=== PATIENT | female | born 1970 | race American Indian/Alaskan Native ===

== ENCOUNTER 2020-05-03 13:53 | Inpatient (IN) | payer OTHER ==
--- NOTE | 2020-05-03 15:03 | Event Note ---
ED Screening Note ED Screening Note: 1 AM this morning n/v/d states she also feels SOB and CP no fever no cough no abd pain no urinary symptoms PMHx none no allergies to meds LNMP: last month This initial assessment/diagnostic orders/clinical plan/treatment(s) is/are subject to change based on patients health status, clinical progression and re- assessment by fellow clinical providers in the ED. Further treatment and workup at subsequent clinical providers discretion. Patient/guardian urged not to elope from the ED as their condition may be serious if not clinically assessed and managed. Initial orders include: CP protocol
[2020-05-03 15:57] LABS: Mean Corpuscular HGB Conc 29 % (30-34); Platelet Count 520 K/mm3 (140-440); Red Blood Count 4.74 M/mm3 (3.65-5.03)
[2020-05-03 16:02] LABS: Hematocrit 29.4 % (30.3-42.9); Hemoglobin 8.6 gm/dl (10.1-14.3); Mean Corpuscular Volume 62 fl (79-97); Red Cell Distribution Width 21.8 % (13.2-15.2)
[2020-05-03 16:05] LABS: Alanine Aminotransferase 9 units/L (7-56); Albumin 4.5 g/dL (3.9-5); Blood Urea Nitrogen 9 mg/dL (7-17); Calcium 9.5 mg/dL (8.4-10.2); Hemolysis Index 1
[2020-05-03 16:28] LABS: BUN/Creatinine Ratio 15
[2020-05-03 16:43] LABS: Chol/HDL Ratio 4.17 %; HDL Cholesterol 41 mg/dL (40-59); LDL Cholesterol,Direct 126 mg/dL (50-130)
--- NOTE | 2020-05-03 16:48 | XRay Report ---
CHEST 2 VIEWS INDICATION: Chest Pain. COMPARISON: None FINDINGS: SUPPORT DEVICES: None. HEART: Within normal limits. LUNGS/PLEURA: There is a 7 mm nodular density over the periphery of the right upper lobe. Otherwise n o acute air space or interstitial disease. No pneumothorax. ADDITIONAL FINDINGS: None. IMPRESSION: 1. Pulmonary findings as above. This could represent a calcified granuloma; however, correlate with a ny prior outside imaging or consider nonemergent CT chest follow-up for further evaluation. Signer Name: Gerard Guzman MD Signed: 05/03/2020 4:43 PM Workstation Name: [id number]
[2020-05-03] MEDS ORDERED: ASPIRIN 325 MG TAB PO ONE (17:02)
[2020-05-03 17:12] LABS: Bacteria,Urine 1+ /HPF (Negative); Bilirubin,Urine NEG (Negative); Blood,Urine NEG (Negative); Color,Urine Yellow (Yellow); Mucus,Urine 2+ /HPF; Urobilinogen,Urine < 2.0 mg/dL (<2.0)
--- NOTE | 2020-05-03 17:18 | Emergency Department Report ---
ED Chest Pain HPI - General Chief Complaint: Nausea/Vomiting/Diarrhea Stated Complaint: CHEST PAIN, VOMITING Time Seen by Provider: 05/03/20 15:01 Source: patient Mode of arrival: Ambulatory Limitations: No Limitations - History of Present Illness Initial Comments: 49-year-old female, no past medical history, presents to ED with vomiting and left-sided chest pain since 1 AM this morning. Patient states pain is like a tightness or discomfort. She reports some associated shortness of breath. Patient states she also has a couple of episodes of diarrhea with chills. Denies fever. Patient denies any tobacco use, family history of CAD. MD Complaint: chest pain -: This morning Onset: during rest Pain Location: left chest Pain Radiation: none Severity: moderate Severity scale (0 -10): 7 Quality: tightness, other ("Discomfort") Consistency: constant Improves With: nothing Worsens With: nothing re: nausea, vomting, dyspnea Other Symptoms: denies: cough, fever, leg swelling - Related Data Home Medications Medication Instructions Recorded Confirmed Last Taken No Known Home Medications [No 05/04/20 05/04/20 Unknown Reported Home Medications] Allergies Allergy/AdvReac Type Severity Reaction Status Date / Time No Known Allergies Allergy Verified 05/03/20 15:02 Heart Score - HEART Score History: Moderately suspicious EKG: Non-specific Age: 45-65 Risk factors: No known risk factors Troponin: > 3x normal limit HEART Score: 5 - Critical Actions Critical Actions: 4-6 pts:12-16.6% risk of adverse cardiac event. Should be admitted ED Review of Systems ROS: Stated complaint: CHEST PAIN, VOMITING Other details as noted in HPI Comment: All other systems reviewed and negative Constitutional: chills. denies: fever Respiratory: shortness of breath. denies: cough Cardiovascular: chest pain Gastrointestinal: nausea, vomiting, diarrhea ED Past Medical Hx - Past Medical History Previous Medical History?: No - Surgical History Past Surgical History?: Yes Additional Surgical History: Tubal ligation 1992, - Social History Smoking Status: Never Smoker Substance Use Type: None - Medications Home Medications: Home Medications Medication Instructions Recorded Confirmed Last Taken Type No Known Home Medications [No 05/04/20 05/04/20 Unknown History Reported Home Medications] ED Physical Exam - General Limitations: No Limitations General appearance: alert, in no apparent distress - Head Head exam: Present: atraumatic, normocephalic - Eye Eye exam: Present: normal appearance, EOMI - ENT ENT exam: Present: mucous membranes moist - Neck Neck exam: Present: normal inspection - Respiratory Respiratory exam: Present: normal lung sounds bilaterally. Absent: respiratory distress - Cardiovascular Cardiovascular Exam: Present: regular rate, normal rhythm - GI/Abdominal GI/Abdominal exam: Present: soft. Absent: distended, tenderness - Extremities Exam Extremities exam: Present: normal inspection. Absent: pedal edema, calf tenderness - Neurological Exam Neurological exam: Present: alert, oriented X3 - Psychiatric Psychiatric exam: Present: normal affect, normal mood - Skin Skin exam: Present: warm, dry, intact, normal color ED Course Vital Signs 05/03/20 05/03/20 05/03/20 14:13 15:19 16:46 Temperature 98.2 F Pulse Rate 74 85 Respiratory 14 13 20 Rate Blood Pressure 146/86 163/88 163/88 Blood Pressure [Left] O2 Sat by Pulse 100 75 L 100 Oximetry 05/03/20 05/03/20 05/03/20 16:58 17:00 18:01 Temperature Pulse Rate 86 70 95 H Respiratory 22 14 13 Rate Blood Pressure 126/71 122/56 Blood Pressure 122/56 [Left] O2 Sat by Pulse 100 100 100 Oximetry 05/03/20 05/03/20 05/03/20 19:00 20:00 20:21 Temperature Pulse Rate 93 H 93 H 82 Respiratory 23 12 28 H Rate Blood Pressure 128/73 144/66 144/66 Blood Pressure [Left] O2 Sat by Pulse 99 98 100 Oximetry 05/03/20 05/03/20 05/03/20 20:31 20:41 20:51 Temperature Pulse Rate 93 H 90 91 H Respiratory 10 L 18 9 L Rate Blood Pressure 144/66 144/66 144/66 Blood Pressure [Left] O2 Sat by Pulse 100 99 99 Oximetry 05/03/20 21:22 Temperature 100.1 F H Pulse Rate 81 Respiratory 20 Rate Blood Pressure 127/78 Blood Pressure [Left] O2 Sat by Pulse 100 Oximetry - Consultations Consultation #1: 05/03/20 18:[address] Ivey, mule packer. Agrees with heparin drip. Will see patient in consult. ED Medical Decision Making - Lab Data Result diagrams: 05/03/20 15:18 05/03/20 15:18 - EKG Data -: EKG Interpreted by Me EKG shows normal: sinus rhythm, axis, intervals, QRS complexes Rate: normal - EKG Data Interpretation: other (T wave inversions I, aVL) - Radiology Data Radiology results: report reviewed, image reviewed - Medical Decision Making 49-year-old female, no known past medical history, presents to ED with chest pain. Patient found to have elevated troponin of 0.4 function. EKG shows no acute ST elevations, however does show some T wave inversions in the lateral leads. Chest x-ray unremarkable. CTA was also obtained, it is negative for PE. Spoke with mule packer, arash with heparin drip. Will see patient in consult. Patient will be admitted to hospitalist, Dr. Dejesus, for further management. Critical Care Time: Yes Critical care time in (mins) excluding proc time.: 35 Critical care attestation.: If time is entered above; I have spent that time in minutes in the direct care of this critically ill patient, excluding procedure time. Critical Care Time: 35 min ED Disposition Clinical Impression: NSTEMI (non-ST elevated myocardial infarction) Disposition: -09 OP ADMIT IP TO THIS HOSP Is pt being admited?: Yes Condition: Stable Time of Disposition: 18:33
[2020-05-03 17:25] LABS: Basophils % (Manual) 0 % (0.0-1.8); Eosinophils % (Manual) 0 % (0.0-4.3); Total Cells Counted 100
[2020-05-03 17:26] LABS: Anisocytosis 1+; Hypochromasia 1+
[2020-05-03] MEDS ORDERED: HEPARIN 10,000 UNITS/10 ML VIAL IV ONE (18:12)
--- NOTE | 2020-05-03 18:24 | Cat Scan Report ---
CT angio chest INDICATION / CLINICAL INFORMATION: chest pain. TECHNIQUE: Axial CT images were obtained after injection of 100 cc of Omnipaque 350 IV contrast using CTA protoc ol. 3 plane MIP / 3D reconstructions were produced. All CT scans at this location are performed using CT dose reduction for ALARA by means of automated exposure control. COMPARISON: None available. FINDINGS: Following the administration of intravenous contrast, no filling defects are seen in the main pulmona ry arteries or their branches. A calcified granulomas present in the right middle lobe. No other sign ificant parenchymal abnormality is seen in the lungs. No enlarged mediastinal or hilar lymph nodes ar e identified. No significant skeletal abnormality is seen. IMPRESSION: No evidence of pulmonary embolus. Negative CTA of the chest Signer Name: Sascha Barakat MD FACR Signed: 05/03/2020 6:19 PM Workstation Name: [id number]
[2020-05-03] MEDS: HEPARIN/ 0.45% NACL DRIP 25,000 UNIT/500 ML BAG IV SCH (19:18)
[2020-05-03 19:24] LABS: INR 1.08 (0.87-1.13)
[2020-05-03 19:25] LABS: Partial Thromboplastin Time 31.5 Sec. (24.2-36.6)
[2020-05-03] MEDS ORDERED: ONDANSETRON 4 MG/2 ML INJ IV ONE (19:27)
--- NOTE | 2020-05-03 21:11 | History and Physical Report ---
History of Present Illness Date of examination: 05/03/20 Date of admission: 05/03/20 19:35 Chief complaint: Chest pain since 1 AM History of present illness: 49-year-old female with no significant past medical history and not on any medication comes in for left-sided chest pain since 1 AM. Chest pain is intermittent but persistent mostly. Chest pain is about a 7 on a scale of 1-10. It is retrosternal. No diaphoresis. No shortness of breath. No palpitations. No radiation. Patient is not on any medications at home. Not lifting any weights. No severe exertion. No fever or exposure to coronavirus. No exacerbating or relieving factors. Heart score evaluated - Past Medical History Previous Medical History?: No - Surgical History Past Surgical History?: Yes Additional Surgical History: Tubal ligation 1992, - Social History Smoking Status: Never Smoker Substance Use Type: None Review of Systems ROS: Stated complaint: CHEST PAIN, VOMITING Other details as noted in HPI Constitutional no weight loss or weight gain no fever or chills HEENT no sore throat no post nasal drip no diplopia Neck no neck stiffness no lymph gland enlargement Chest and lungs chest pain since 1 AM CVS no chest pain no diaphoresis no palpitations GI no nausea no vomiting no diarrhea Genitourinary system no dysuria no flank pain Musculoskeletal system no muscle pains no joint pains [employer] no syncope no seizures Skin no rash no itching Psychiatric no depression no homicidal or suicidal tendencies Hematologic no lymphedema or bruising Endocrine no polydipsia no polyuria no cold intolerance no heat intolerance Medications and Allergies Allergies Allergy/AdvReac Type Severity Reaction Status Date / Time No Known Allergies Allergy Verified 05/03/20 15:02 Active Meds: Active Medications Heparin Sodium/Sodium Chloride (Heparin/ 0.45% Nacl-25,000 Unit/500 Ml) 25,000 unit in 500 mls @ 20 mls/hr IV TITRATE [facility]; Protocol Last Admin: 05/03/20 19:18 Dose: 1,000 units/hr, 20 mls/hr Documented by: Exam - Constitutional Vitals: Temp Pulse Resp BP Pulse Ox 98.2 F 93 H 12 144/66 98 05/03/20 14:13 05/03/20 20:00 05/03/20 20:00 05/03/20 20:00 05/03/20 20:00 General appearance: Present: no acute distress, well-nourished - EENT Eyes: Present: PERRL ENT: hearing intact, clear oral mucosa - Neck Neck: Present: supple, normal ROM - Respiratory Respiratory effort: normal Respiratory: bilateral: CTA - Cardiovascular Heart rate: 78 Rhythm: regular Heart Sounds: Present: S1 & S2. Absent: rub, click - Extremities Extremities: no ischemia, pulses symmetrical, No edema Peripheral Pulses: within normal limits - Abdominal General gastrointestinal: Present: soft, non-tender, non-distended, normal bowel sounds Female genitourinary: Present: normal - Rectal Rectal Exam: deferred - Integumentary Integumentary: Present: clear, warm, dry - Musculoskeletal Musculoskeletal: gait normal, strength equal bilaterally - Psychiatric Psychiatric: appropriate mood/affect, intact judgment & insight - Neurologic Neurologic: CNII-XII intact, moves all extremities - Allied Health Allied health notes reviewed: nursing, case management HEART Score - HEART Score History: Moderately suspicious EKG: Non-specific Age: 45-65 Risk factors: No known risk factors Troponin: Troponin T 0.451 ng/mL (0.00-0.029) H* 05/03/20 18:20 Troponin: > 3x normal limit HEART Score: 5 - Critical Actions Critical Actions: 4-6 pts:12-16.6% risk of adverse cardiac event. Should be admitted Results - Labs CBC & Chem 7: 05/03/20 15:18 05/03/20 15:18 Labs: Laboratory Last Values WBC 8.4 K/mm3 (4.5-11.0) 05/03/20 15:18 RBC 4.74 M/mm3 (3.65-5.03) 05/03/20 15:18 Hgb 8.6 gm/dl (10.1-14.3) L 05/03/20 15:18 Hct 29.4 % (30.3-42.9) L 05/03/20 15:18 MCV 62 fl (79-97) L 05/03/20 15:18 MCH 18 pg (28-32) L 05/03/20 15:18 MCHC 29 % (30-34) L 05/03/20 15:18 RDW 21.8 % (13.2-15.2) H 05/03/20 15:18 Plt Count 520 K/mm3 (140-440) H 05/03/20 15:18 Add Manual Diff Complete 05/03/20 15:18 Total Counted 100 05/03/20 15:18 Seg Neuts % (Manual) 90.0 % (40.0-70.0) H 05/03/20 15:18 Band Neutrophils % 0 % 05/03/20 15:18 Lymphocytes % (Manual) 7.0 % (13.4-35.0) L 05/03/20 15:18 Reactive Lymphs % (Man) 0 % 05/03/20 15:18 Monocytes % (Manual) 3.0 % (0.0-7.3) 05/03/20 15:18 Eosinophils % (Manual) 0 % (0.0-4.3) 05/03/20 15:18 Basophils % (Manual) 0 % (0.0-1.8) 05/03/20 15:18 Metamyelocytes % 0 % 05/03/20 15:18 Myelocytes % 0 % 05/03/20 15:18 Promyelocytes % 0 % 05/03/20 15:18 Blast Cells % 0 % 05/03/20 15:18 Nucleated RBC % Not Reportable 05/03/20 15:18 Seg Neutrophils # Man 7.6 K/mm3 (1.8-7.7) 05/03/20 15:18 Band Neutrophils # 0.0 K/mm3 05/03/20 15:18 Lymphocytes # (Manual) 0.6 K/mm3 (1.2-5.4) L 05/03/20 15:18 Abs React Lymphs (Man) 0.0 K/mm3 05/03/20 15:18 Monocytes # (Manual) 0.3 K/mm3 (0.0-0.8) 05/03/20 15:18 Eosinophils # (Manual) 0.0 K/mm3 (0.0-0.4) 05/03/20 15:18 Basophils # (Manual) 0.0 K/mm3 (0.0-0.1) 05/03/20 15:18 Metamyelocytes # 0.0 K/mm3 05/03/20 15:18 Myelocytes # 0.0 K/mm3 05/03/20 15:18 Promyelocytes # 0.0 K/mm3 05/03/20 15:18 Blast Cells # 0.0 K/mm3 05/03/20 15:18 WBC Morphology Not Reportable 05/03/20 15:18 Hypersegmented Neuts Not Reportable 05/03/20 15:18 Hyposegmented Neuts Not Reportable 05/03/20 15:18 Hypogranular Neuts Not Reportable 05/03/20 15:18 Smudge Cells Not Reportable 05/03/20 15:18 Toxic Granulation Not Reportable 05/03/20 15:18 Toxic Vacuolation Not Reportable 05/03/20 15:18 Dohle Bodies Not Reportable 05/03/20 15:18 Pelger-Huet Anomaly Not Reportable 05/03/20 15:18 Aleksander Rods Not Reportable 05/03/20 15:18 Platelet Estimate Not Reportable 05/03/20 15:18 Clumped Platelets Not Reportable 05/03/20 15:18 Plt Clumps, EDTA Not Reportable 05/03/20 15:18 Large Platelets Not Reportable 05/03/20 15:18 Giant Platelets Not Reportable 05/03/20 15:18 Platelet Satelliting Not Reportable 05/03/20 15:18 Plt Morphology Comment Not Reportable 05/03/20 15:18 RBC Morphology Not Reportable 05/03/20 15:18 Dimorphic RBCs Not Reportable 05/03/20 15:18 Polychromasia Not Reportable 05/03/20 15:18 Hypochromasia 1+ 05/03/20 15:18 Poikilocytosis Not Reportable 05/03/20 15:18 Anisocytosis 1+ 05/03/20 15:18 Microcytosis 1+ 05/03/20 15:18 Macrocytosis Not Reportable 05/03/20 15:18 Spherocytes Not Reportable 05/03/20 15:18 Pappenheimer Bodies Not Reportable 05/03/20 15:18 Sickle Cells Not Reportable 05/03/20 15:18 Target Cells Not Reportable 05/03/20 15:18 Tear Drop Cells Not Reportable 05/03/20 15:18 Ovalocytes Not Reportable 05/03/20 15:18 Helmet Cells Not Reportable 05/03/20 15:18 [place] Bodies Not Reportable 05/03/20 15:18 [place] Rings Not Reportable 05/03/20 15:18 [place] Cells Not Reportable 05/03/20 15:18 Bite Cells Not Reportable 05/03/20 15:18 Crenated Cell Not Reportable 05/03/20 15:18 Elliptocytes Not Reportable 05/03/20 15:18 Acanthocytes (Spur) Not Reportable 05/03/20 15:18 Rouleaux Not Reportable 05/03/20 15:18 Hemoglobin C Crystals Not Reportable 05/03/20 15:18 Schistocytes Not Reportable 05/03/20 15:18 Malaria parasites Not Reportable 05/03/20 15:18 Miguel Bodies Not Reportable 05/03/20 15:18 Hem Pathologist Commnt No 05/03/20 15:18 PT 14.2 Sec. (12.2-14.9) 05/03/20 18:20 INR 1.08 (0.87-1.13) 05/03/20 18:20 APTT 31.5 Sec. (24.2-36.6) 05/03/20 18:20 Sodium 138 mmol/L (137-145) 05/03/20 15:18 Potassium 3.9 mmol/L (3.6-5.0) 05/03/20 15:18 Chloride 105.9 mmol/L (98-107) 05/03/20 15:18 Carbon Dioxide 19 mmol/L (22-30) L 05/03/20 15:18 Anion Gap 17 mmol/L 05/03/20 15:18 BUN 9 mg/dL (7-17) 05/03/20 15:18 Creatinine 0.6 mg/dL (0.6-1.2) 05/03/20 15:18 Estimated GFR > 60 ml/min 05/03/20 15:18 BUN/Creatinine Ratio 15 % 05/03/20 15:18 Glucose 145 mg/dL (65-100) H 05/03/20 15:18 Calcium 9.5 mg/dL (8.4-10.2) 05/03/20 15:18 Total Bilirubin 0.70 mg/dL (0.1-1.2) 05/03/20 15:18 AST 26 units/L (5-40) 05/03/20 15:18 ALT 9 units/L (7-56) 05/03/20 15:18 Alkaline Phosphatase 83 units/L (35-129) 05/03/20 15:18 Troponin T 0.451 ng/mL (0.00-0.029) H* 05/03/20 18:20 Total Protein 10.1 g/dL (6.3-8.2) H 05/03/20 15:18 Albumin 4.5 g/dL (3.9-5) 05/03/20 15:18 Albumin/Globulin Ratio 0.8 % 05/03/20 15:18 Triglycerides 61 mg/dL (2-149) 05/03/20 15:18 Cholesterol 171 mg/dL (50-199) 05/03/20 15:18 LDL Cholesterol Direct 126 mg/dL (50-130) 05/03/20 15:18 HDL Cholesterol 41 mg/dL (40-59) 05/03/20 15:18 Cholesterol/HDL Ratio 4.17 % 05/03/20 15:18 Lipase 17 units/L (13-60) 05/03/20 15:18 HCG, Qual Negative (Negative) 05/03/20 15:18 Urine Color Yellow (Yellow) 05/03/20 16:28 Urine Turbidity Clear (Clear) 05/03/20 16:28 Urine pH 5.0 (5.0-7.0) 05/03/20 16:28 Ur Specific [place] 1.035 (1.003-1.030) H 05/03/20 16:28 Urine Protein 100 mg/dl mg/dL (Negative) 05/03/20 16:28 Urine Glucose (UA) Neg mg/dL (Negative) 05/03/20 16:28 Urine Ketones 80 mg/dL (Negative) 05/03/20 16:28 Urine Blood Neg (Negative) 05/03/20 16:28 Urine Nitrite Neg (Negative) 05/03/20 16:28 Urine Bilirubin Neg (Negative) 05/03/20 16:28 Urine Urobilinogen < 2.0 mg/dL (<2.0) 05/03/20 16:28 Ur Leukocyte Esterase Neg (Negative) 05/03/20 16:28 Urine WBC (Auto) 1.0 /HPF (0.0-6.0) 05/03/20 16:28 Urine RBC (Auto) 3.0 /HPF (0.0-6.0) 05/03/20 16:28 U Epithel Cells (Auto) 5.0 /HPF (0-13.0) 05/03/20 16:28 Urine Bacteria (Auto) 1+ /HPF (Negative) 05/03/20 16:28 Urine Mucus 2+ /HPF 05/03/20 16:28 - Imaging and Cardiology EKG: report reviewed (Sinus rhythm no acute ST-T wave changes heart rate of 78/min) Chest x-ray: report reviewed CT scan - chest: report reviewed Imaging and Cardiology: Chest x-ray 7 mm nodular density of the periphery of the right upper lobe which could represent a calcified granuloma CT chest follow-up for further evaluation Chest CTA no evidence of pulmonary embolism Negative CT angiogram of the chest [place]/IV: IV Catheter Type [Right Peripheral IV Antecubital] Assessment and Plan Advance Directives: Yes (Full code) VTE prophylaxis?: Chemical Plan of care discussed with patient/family: Yes - Patient Problems (1) NSTEMI (non-ST elevated myocardial infarction) Current Visit: Yes Status: Acute Plan to address problem: Elevated troponin levels Cardiology consulted IV heparin drip started Possible cath versus Lexiscan in the morning (2) Anemia Current Visit: Yes Status: Chronic Qualifiers: Anemia type: unspecified type Qualified Code(s): D64.9 - Anemia, unspecified Plan to address problem: Anemia work-up including iron levels B12 and folic acid levels (3) DVT prophylaxis Current Visit: Yes Status: Acute Plan to address problem: Patient on IV heparin drip and GI prophylaxis
[2020-05-03] MEDS: ACETAMINOPHEN 325 MG TAB PO PRN (22:00)
[2020-05-03] MEDS: ONDANSETRON 4 MG/2 ML INJ IV PRN (22:03)
[2020-05-03] MEDS: SODIUM CHLORIDE 0.9% 1000 ML 1,000 ML IV SCH (22:03)
[2020-05-04] MEDS: ONDANSETRON 4 MG/2 ML INJ IV PRN ×3 (06:05→23:55)
--- NOTE | 2020-05-04 10:23 | Consultation ---
History of Present Illness Consult date: 05/04/20 Consult reason: chest pain, elevated troponin History of present illness: This is a 49-year old F who presents to this hospital with shortness of breath, fever and chills. Max temperature of 100.1. Chest xray reports no acute findings and there is no evidence of pulmonary embolism by chest CTA. In addition, while in the emergency department, patient complained of chest pain. Patient describes left sided chest pain following episodes of vomiting. There was no chest pain on exertion. Laboratory studies shows elevated troponin measurements. An ECG done is sinus rhythm with nonspecific T wave inversions. A cardiology consultation has been requested for further evaluation. Medications and Allergies Allergies Allergy/AdvReac Type Severity Reaction Status Date / Time No Known Allergies Allergy Verified 05/03/20 15:02 Home Medications Medication Instructions Recorded Confirmed Last Taken Type No Known Home Medications [No 05/04/20 05/04/20 Unknown History Reported Home Medications] Active Meds: Active Medications Acetaminophen (Tylenol) 650 mg PO Q4H PRN PRN Reason: Pain MILD(1-3)/Fever >100.5/HOFFMAN Last Admin: 05/03/20 22:00 Dose: 650 mg Documented by: Heparin Sodium/Sodium Chloride (Heparin/ 0.45% Nacl-25,000 Unit/500 Ml) 25,000 unit in 500 mls @ 20 mls/hr IV TITRATE [facility]; Protocol Last Titration: 05/04/20 03:13 Dose: 1,000 units/hr, 20 mls/hr Documented by: Sodium Chloride (Nacl 0.9% 1000 Ml) 1,000 mls @ 75 mls/hr IV DIRECT [place] Last Admin: 05/03/20 22:03 Dose: 75 mls/hr Documented by: Ondansetron HCl (Zofran) 4 mg IV Q8H PRN PRN Reason: Nausea And Vomiting Last Admin: 05/04/20 06:05 Dose: 4 mg Documented by: Sodium Chloride (Sodium Chloride Flush Syringe 10 Ml) 10 ml IV BID [place] Last Admin: 05/04/20 10:11 Dose: 10 ml Documented by: Sodium Chloride (Sodium Chloride Flush Syringe 10 Ml) 10 ml IV PRN PRN PRN Reason: LINE FLUSH Physical Examination Vital Signs Temp Pulse Resp BP Pulse Ox 98.2 F 74 14 146/86 100 05/03/20 14:13 05/03/20 14:13 05/03/20 14:13 05/03/20 14:13 05/03/20 14:13 Results 05/03/20 15:18 05/03/20 15:18 Cardiac Enzymes 05/03/20 Range/Units 15:18 AST 26 (5-40) units/L Coagulation 05/03/20 Range/Units 18:20 PT 14.2 (12.2-14.9) Sec. INR 1.08 (0.87-1.13) APTT 31.5 (24.2-36.6) Sec. Lipids 05/03/20 Range/Units 15:18 Triglycerides 61 (2-149) mg/dL Cholesterol 171 (50-199) mg/dL HDL Cholesterol 41 (40-59) mg/dL Cholesterol/HDL Ratio 4.17 % CBC 05/03/20 Range/Units 15:18 WBC 8.4 (4.5-11.0) K/mm3 RBC 4.74 (3.65-5.03) M/mm3 Hgb 8.6 L (10.1-14.3) gm/dl Hct 29.4 L (30.3-42.9) % Plt Count 520 H (140-440) K/mm3 Comprehensive Metabolic Panel 05/03/20 Range/Units 15:18 Sodium 138 (137-145) mmol/L Potassium 3.9 (3.6-5.0) mmol/L Chloride 105.9 (98-107) mmol/L Carbon Dioxide 19 L (22-30) mmol/L BUN 9 (7-17) mg/dL Creatinine 0.6 (0.6-1.2) mg/dL Glucose 145 H (65-100) mg/dL Calcium 9.5 (8.4-10.2) mg/dL AST 26 (5-40) units/L ALT 9 (7-56) units/L Alkaline Phosphatase 83 (35-129) units/L Total Protein 10.1 H (6.3-8.2) g/dL Albumin 4.5 (3.9-5) g/dL
[2020-05-04] MEDS: SODIUM CHLORIDE 0.9% 1000 ML 1,000 ML IV SCH ×2 (11:45→19:52)
[2020-05-04] MEDS: ACETAMINOPHEN 325 MG TAB PO PRN ×4 (11:47→23:55)
[2020-05-04 14:37] LABS: % Iron Saturation 3.76 %
--- NOTE | 2020-05-04 18:29 | Progress Note ---
Assessment and Plan - Patient Problems (1) NSTEMI (non-ST elevated myocardial infarction) Current Visit: Yes Status: Acute Plan to address problem: Elevated troponin levels Cardiology consulted IV heparin drip started Possible cath versus Lexiscan in the morning (2) Anemia Current Visit: Yes Status: Chronic Qualifiers: Anemia type: unspecified type Qualified Code(s): D64.9 - Anemia, unspecified Plan to address problem: Anemia work-up including iron levels B12 and folic acid levels (3) Acute gastroenteritis Current Visit: Yes Status: Acute Plan to address problem: IV fluids for now Resolving Coronavirus to be ruled out (4) DVT prophylaxis Current Visit: Yes Status: Acute Plan to address problem: Patient on IV heparin drip and GI prophylaxis Subjective Date of service: 05/04/20 Principal diagnosis: Acute gastroenteritis, chest pain Interval history: 49-year-old female with no significant past medical history and not on any medication comes in for left-sided chest pain since 1 AM. Chest pain is inte rmittent but persistent mostly. Chest pain is about a 7 on a scale of 1-10. It is retrosternal. No diaphoresis. No shortness of breath. No palpitations. No radiation. Patient is not on any medications at home. Not lifting any weights. No severe exertion. No fever or exposure to coronavirus. No exacerbating or relieving factors. Heart score evaluated Day #2 05/04/2020 Patient had nausea vomiting diarrhea prior to admission Diarrhea resolved Vomiting x1 episode Covid to be ruled out Objective - Constitutional Vitals: Vital Signs - 12hr 05/04/20 05/04/20 05/04/20 07:23 10:00 11:30 Temperature 98.5 F 98.6 F Pulse Rate 109 H 107 H 119 H Respiratory 20 20 Rate Blood Pressure 111/75 113/72 O2 Sat by Pulse 95 94 Oximetry 05/04/20 16:50 Temperature 97.8 F Pulse Rate 120 H Respiratory 20 Rate Blood Pressure 110/69 O2 Sat by Pulse 91 Oximetry General appearance: Present: no acute distress, well-nourished - EENT Eyes: PERRL, EOM intact ENT: hearing intact, clear oral mucosa Ears: bilateral: normal - Neck Neck: supple, normal ROM - Respiratory Respiratory effort: normal Respiratory: bilateral: CTA - Breasts Breasts: normal - Cardiovascular Heart rate: 78 Rhythm: regular Heart Sounds: Present: S1 & S2. Absent: gallop, rub Extremities: pulses intact, No edema, normal color, Full ROM - Gastrointestinal General gastrointestinal: Present: soft, non-tender, non-distended, normal bowel sounds - Genitourinary Female genitourinary: normal - Integumentary Integumentary: clear, warm, dry - Musculoskeletal Musculoskeletal: 1, strength equal bilaterally - Neurologic Neurologic: moves all extremities - Psychiatric Psychiatric: memory intact, appropriate mood/affect, intact judgment & insight - Labs CBC & Chem 7: 05/03/20 15:18 05/03/20 15:18 Labs: Abnormal lab results 05/03/20 05/04/20 05/04/20 Range/Units 18:20 13:39 13:39 Iron 13 L (37-170) ug/dL Troponin T 0.451 H* 0.318 H* D (0.00-0.029) ng/mL HEART Score - HEART Score EKG: Non-specific Age: 45-65 Risk factors: No known risk factors Troponin: Troponin T 0.318 ng/mL (0.00-0.029) H* D 05/04/20 13:39 Troponin: > 3x normal limit - Critical Actions Critical Actions: 4-6 pts:12-16.6% risk of adverse cardiac event. Should be admitted
[2020-05-04] MEDS: HEPARIN/ 0.45% NACL DRIP 25,000 UNIT/500 ML BAG IV SCH (19:53)
[2020-05-05 06:46] LABS: Alanine Aminotransferase 13 units/L (7-56); Blood Urea Nitrogen 14 mg/dL (7-17); Calcium 8.4 mg/dL (8.4-10.2); Hemolysis Index 34
[2020-05-05 06:49] LABS: BUN/Creatinine Ratio 28
[2020-05-05 07:19] LABS: Basophils % (Auto) 0.2 % (0.0-1.8); Lymphocytes # (Auto) 1.9 K/mm3 (1.2-5.4); Lymphocytes % (Auto) 9.6 % (13.4-35.0); Mean Corpuscular HGB Conc 30 % (30-34); Monocytes # (Auto) 0.9 K/mm3 (0.0-0.8); Monocytes % (Auto) 4.7 % (0.0-7.3); Platelet Count 360 K/mm3 (140-440)
[2020-05-05 07:40] LABS: Hemoglobin 9.5 gm/dl (10.1-14.3)
[2020-05-05 07:41] LABS: Hematocrit 32.4 % (30.3-42.9); Mean Corpuscular Volume 61 fl (79-97); Red Cell Distribution Width 21.4 % (13.2-15.2)
[2020-05-05] MEDS: ACETAMINOPHEN 325 MG TAB PO PRN ×3 (09:16→23:46)
[2020-05-05] MEDS: ONDANSETRON 4 MG/2 ML INJ IV PRN (09:17)
[2020-05-05] MEDS: SODIUM CHLORIDE 0.9% 1000 ML 1,000 ML IV SCH (09:17)
--- NOTE | 2020-05-05 10:30 | Progress Note ---
Assessment and Plan Elevated troponin levels ECG is normal sinus rhythm with some nonspecific appearing T waves changes in the lateral leads. Shortness of breath with low-grade fever of 100.1 on presentation COVID results are pending Epigastric and chest pain following episodes of vomiting. Recommendations: COVID-19 results are pending. After fever and gastritis work-up, we will contemplate further cardiac evaluation as indicated. Subjective Date of service: 05/05/20 Principal diagnosis: Acute gastroenteritis, chest pain Interval history: Patient has shortness of breath and cough. No distress noted. COVID results are pending. Objective Vital Signs Temp Pulse Resp BP Pulse Ox 05/05/20 08:15 98.3 F 125 H 22 122/67 88 05/05/20 05:35 98.1 F 122 H 28 H 109/66 81 L 05/05/20 02:00 121 H 05/05/20 00:05 98.1 F 121 H 34 H 121/84 87 05/04/20 23:55 18 05/04/20 20:23 98.1 F 120 H 26 H 119/67 90 05/04/20 19:51 20 05/04/20 16:50 97.8 F 120 H 20 110/69 91 05/04/20 11:30 98.6 F 119 H 20 113/72 94 - Physical Examination Narrative exam: Deferred due to isolation protocol. General: No Apparent Distress - Labs and Meds Cardiac Enzymes 05/05/20 Range/Units 05:25 AST 39 (5-40) units/L CBC 05/05/20 Range/Units 05:25 WBC 19.3 H (4.5-11.0) K/mm3 RBC 5.30 H (3.65-5.03) M/mm3 Hgb 9.5 L (10.1-14.3) gm/dl Hct 32.4 (30.3-42.9) % Plt Count 360 (140-440) K/mm3 Lymph # (Auto) 1.9 (1.2-5.4) K/mm3 [place] # (Auto) 0.9 H (0.0-0.8) K/mm3 Eos # (Auto) 0.0 (0.0-0.4) K/mm3 Baso # (Auto) 0.0 (0.0-0.1) K/mm3 Comprehensive Metabolic Panel 05/05/20 Range/Units 05:25 Sodium 132 L (137-145) mmol/L Potassium 4.1 (3.6-5.0) mmol/L Chloride 104.7 (98-107) mmol/L Carbon Dioxide 15 L (22-30) mmol/L BUN 14 (7-17) mg/dL Creatinine 0.5 L (0.6-1.2) mg/dL Glucose 115 H (65-100) mg/dL Calcium 8.4 (8.4-10.2) mg/dL AST 39 (5-40) units/L ALT 13 (7-56) units/L Alkaline Phosphatase 63 (35-129) units/L Total Protein 7.8 D (6.3-8.2) g/dL Albumin 3.0 L (3.9-5) g/dL - Imaging and Cardiology EKG: report reviewed (Sinus rhythm no acute ST-T wave changes heart rate of 78/min)
[2020-05-05] MEDS: HEPARIN/ 0.45% NACL DRIP 25,000 UNIT/500 ML BAG IV SCH (16:03)
--- NOTE | 2020-05-05 20:36 | Progress Note ---
Assessment and Plan - Patient Problems (1) Coronavirus infection Current Visit: Yes Status: Acute Plan to address problem: Coronavirus protocol: IV antibiotic therapy, IV steroid therapy, contact precautions, isolation precautions (2) Sepsis Current Visit: Yes Status: Acute Plan to address problem: Sepsis protocol: IV antibiotic therapy, IV fluid resuscitation therapy as clinically indicated. Care is taken to avoid fluid overload in a patient with coronavirus infection, encourage free water intake orally. (3) NSTEMI (non-ST elevated myocardial infarction) Current Visit: Yes Status: Acute Plan to address problem: Cardiology team consulted, supportive care, further testing and evaluation as per cardiology team (4) DVT prophylaxis Current Visit: Yes Status: Acute Plan to address problem: SCD to bilateral lower extremities while in bed, patient is ambulatory History Interval history: 49-year-old female hospital day 3 with sepsis, coronavirus infection, non-ST elevation [place], anemia of chronic disease. Patient transferred to medical floor. Patient denies fever, chills, chest pain. No reported nursing events. Patient acknowledges shortness of breath. Hospitalist Physical - Constitutional Vitals: Temp Pulse Resp BP Pulse Ox 98.9 F 118 H 22 106/56 90 05/05/20 17:09 05/05/20 17:09 05/05/20 17:09 05/05/20 17:09 05/05/20 17:09 General appearance: Present: no acute distress, well-nourished - EENT Eyes: Present: PERRL, EOM intact ENT: hearing intact - Neck Neck: Present: supple - Respiratory Respiratory effort: labored, accessory muscle use Respiratory: bilateral: diminished, rhonchi - Cardiovascular Rhythm: regular Heart Sounds: Present: S1 & S2 - Extremities Extremities: no ischemia Peripheral Pulses: within normal limits - Abdominal General gastrointestinal: soft, non-tender, non-distended - Integumentary Integumentary: Present: clear, dry - Psychiatric Psychiatric: appropriate mood/affect, cooperative - Neurologic Neurologic: CNII-XII intact HEART Score - HEART Score EKG: Non-specific Age: 45-65 Risk factors: No known risk factors Troponin: Troponin T 0.318 ng/mL (0.00-0.029) H* D 05/04/20 13:39 Troponin: > 3x normal limit - Critical Actions Critical Actions: 4-6 pts:12-16.6% risk of adverse cardiac event. Should be admitted Results - Labs CBC & Chem 7: 05/05/20 05:25 05/05/20 05:25 Labs: Laboratory Last Values WBC 19.3 K/mm3 (4.5-11.0) H 05/05/20 05:25 RBC 5.30 M/mm3 (3.65-5.03) H 05/05/20 05:25 Hgb 9.5 gm/dl (10.1-14.3) L 05/05/20 05:25 Hct 32.4 % (30.3-42.9) 05/05/20 05:25 MCV 61 fl (79-97) L 05/05/20 05:25 MCH 18 pg (28-32) L 05/05/20 05:25 MCHC 30 % (30-34) 05/05/20 05:25 RDW 21.4 % (13.2-15.2) H 05/05/20 05:25 Plt Count 360 K/mm3 (140-440) 05/05/20 05:25 Lymph % (Auto) 9.6 % (13.4-35.0) L 05/05/20 05:25 [place] % (Auto) 4.7 % (0.0-7.3) 05/05/20 05:25 Eos % (Auto) 0.0 % (0.0-4.3) 05/05/20 05:25 Baso % (Auto) 0.2 % (0.0-1.8) 05/05/20 05:25 Lymph # (Auto) 1.9 K/mm3 (1.2-5.4) 05/05/20 05:25 [place] # (Auto) 0.9 K/mm3 (0.0-0.8) H 05/05/20 05:25 Eos # (Auto) 0.0 K/mm3 (0.0-0.4) 05/05/20 05:25 Baso # (Auto) 0.0 K/mm3 (0.0-0.1) 05/05/20 05:25 Add Manual Diff Complete 05/03/20 15:18 Total Counted 100 05/03/20 15:18 Seg Neutrophils % 85.5 % (40.0-70.0) H 05/05/20 05:25 Seg Neuts % (Manual) 90.0 % (40.0-70.0) H 05/03/20 15:18 Band Neutrophils % 0 % 05/03/20 15:18 Lymphocytes % (Manual) 7.0 % (13.4-35.0) L 05/03/20 15:18 Reactive Lymphs % (Man) 0 % 05/03/20 15:18 Monocytes % (Manual) 3.0 % (0.0-7.3) 05/03/20 15:18 Eosinophils % (Manual) 0 % (0.0-4.3) 05/03/20 15:18 Basophils % (Manual) 0 % (0.0-1.8) 05/03/20 15:18 Metamyelocytes % 0 % 05/03/20 15:18 Myelocytes % 0 % 05/03/20 15:18 Promyelocytes % 0 % 05/03/20 15:18 Blast Cells % 0 % 05/03/20 15:18 Nucleated RBC % Not Reportable 05/03/20 15:18 Seg Neutrophils # 16.5 K/mm3 (1.8-7.7) H 05/05/20 05:25 Seg Neutrophils # Man 7.6 K/mm3 (1.8-7.7) 05/03/20 15:18 Band Neutrophils # 0.0 K/mm3 05/03/20 15:18 Lymphocytes # (Manual) 0.6 K/mm3 (1.2-5.4) L 05/03/20 15:18 Abs React Lymphs (Man) 0.0 K/mm3 05/03/20 15:18 Monocytes # (Manual) 0.3 K/mm3 (0.0-0.8) 05/03/20 15:18 Eosinophils # (Manual) 0.0 K/mm3 (0.0-0.4) 05/03/20 15:18 Basophils # (Manual) 0.0 K/mm3 (0.0-0.1) 05/03/20 15:18 Metamyelocytes # 0.0 K/mm3 05/03/20 15:18 Myelocytes # 0.0 K/mm3 05/03/20 15:18 Promyelocytes # 0.0 K/mm3 05/03/20 15:18 Blast Cells # 0.0 K/mm3 05/03/20 15:18 WBC Morphology Not Reportable 05/03/20 15:18 Hypersegmented Neuts Not Reportable 05/03/20 15:18 Hyposegmented Neuts Not Reportable 05/03/20 15:18 Hypogranular Neuts Not Reportable 05/03/20 15:18 Smudge Cells Not Reportable 05/03/20 15:18 Toxic Granulation Not Reportable 05/03/20 15:18 Toxic Vacuolation Not Reportable 05/03/20 15:18 Dohle Bodies Not Reportable 05/03/20 15:18 Pelger-Huet Anomaly Not Reportable 05/03/20 15:18 Aleksander Rods Not Reportable 05/03/20 15:18 Platelet Estimate Not Reportable 05/03/20 15:18 Clumped Platelets Not Reportable 05/03/20 15:18 Plt Clumps, EDTA Not Reportable 05/03/20 15:18 Large Platelets Not Reportable 05/03/20 15:18 Giant Platelets Not Reportable 05/03/20 15:18 Platelet Satelliting Not Reportable 05/03/20 15:18 Plt Morphology Comment Not Reportable 05/03/20 15:18 RBC Morphology Not Reportable 05/03/20 15:18 Dimorphic RBCs Not Reportable 05/03/20 15:18 Polychromasia Not Reportable 05/03/20 15:18 Hypochromasia 1+ 05/03/20 15:18 Poikilocytosis Not Reportable 05/03/20 15:18 Anisocytosis 1+ 05/03/20 15:18 Microcytosis 1+ 05/03/20 15:18 Macrocytosis Not Reportable 05/03/20 15:18 Spherocytes Not Reportable 05/03/20 15:18 Pappenheimer Bodies Not Reportable 05/03/20 15:18 Sickle Cells Not Reportable 05/03/20 15:18 Target Cells Not Reportable 05/03/20 15:18 Tear Drop Cells Not Reportable 05/03/20 15:18 Ovalocytes Not Reportable 05/03/20 15:18 Helmet Cells Not Reportable 05/03/20 15:18 [place] Bodies Not Reportable 05/03/20 15:18 [place] Rings Not Reportable 05/03/20 15:18 [place] Cells Not Reportable 05/03/20 15:18 Bite Cells Not Reportable 05/03/20 15:18 Crenated Cell Not Reportable 05/03/20 15:18 Elliptocytes Not Reportable 05/03/20 15:18 Acanthocytes (Spur) Not Reportable 05/03/20 15:18 Rouleaux Not Reportable 05/03/20 15:18 Hemoglobin C Crystals Not Reportable 05/03/20 15:18 Schistocytes Not Reportable 05/03/20 15:18 Malaria parasites Not Reportable 05/03/20 15:18 Miguel Bodies Not Reportable 05/03/20 15:18 Hem Pathologist Commnt No 05/03/20 15:18 PT 14.2 Sec. (12.2-14.9) 05/03/20 18:20 INR 1.08 (0.87-1.13) 05/03/20 18:20 APTT 31.5 Sec. (24.2-36.6) 05/03/20 18:20 Heparin Anti-Xa Level 0.24 U.I./ml (0.3-0.7) L 05/05/20 14:41 Sodium 132 mmol/L (137-145) L 05/05/20 05:25 Potassium 4.1 mmol/L (3.6-5.0) 05/05/20 05:25 Chloride 104.7 mmol/L (98-107) 05/05/20 05:25 Carbon Dioxide 15 mmol/L (22-30) L 05/05/20 05:25 Anion Gap 16 mmol/L 05/05/20 05:25 BUN 14 mg/dL (7-17) 05/05/20 05:25 Creatinine 0.5 mg/dL (0.6-1.2) L 05/05/20 05:25 Estimated GFR > 60 ml/min 05/05/20 05:25 BUN/Creatinine Ratio 28 % 05/05/20 05:25 Glucose 115 mg/dL (65-100) H 05/05/20 05:25 Calcium 8.4 mg/dL (8.4-10.2) 05/05/20 05:25 Iron 13 ug/dL (37-170) L 05/04/20 13:39 TIBC 346 mcg/dL (250-450) 05/04/20 13:39 % Saturation 3.76 % 05/04/20 13:39 Transferrin 301 mg/dl (192-382) 05/04/20 13:39 Total Bilirubin 0.40 mg/dL (0.1-1.2) 05/05/20 05:25 AST 39 units/L (5-40) 05/05/20 05:25 ALT 13 units/L (7-56) 05/05/20 05:25 Alkaline Phosphatase 63 units/L (35-129) 05/05/20 05:25 Troponin T 0.318 ng/mL (0.00-0.029) H* D 05/04/20 13:39 Total Protein 7.8 g/dL (6.3-8.2) D 05/05/20 05:25 Albumin 3.0 g/dL (3.9-5) L 05/05/20 05:25 Albumin/Globulin Ratio 0.6 % 05/05/20 05:25 Triglycerides 61 mg/dL (2-149) 05/03/20 15:18 Cholesterol 171 mg/dL (50-199) 05/03/20 15:18 LDL Cholesterol Direct 126 mg/dL (50-130) 05/03/20 15:18 HDL Cholesterol 41 mg/dL (40-59) 05/03/20 15:18 Cholesterol/HDL Ratio 4.17 % 05/03/20 15:18 Lipase 17 units/L (13-60) 05/03/20 15:18 HCG, Qual Negative (Negative) 05/03/20 15:18 Urine Color Yellow (Yellow) 05/03/20 16:28 Urine Turbidity Clear (Clear) 05/03/20 16:28 Urine pH 5.0 (5.0-7.0) 05/03/20 16:28 Ur Specific [place] 1.035 (1.003-1.030) H 05/03/20 16:28 Urine Protein 100 mg/dl mg/dL (Negative) 05/03/20 16:28 Urine Glucose (UA) Neg mg/dL (Negative) 05/03/20 16:28 Urine Ketones 80 mg/dL (Negative) 05/03/20 16:28 Urine Blood Neg (Negative) 05/03/20 16:28 Urine Nitrite Neg (Negative) 05/03/20 16:28 Urine Bilirubin Neg (Negative) 05/03/20 16:28 Urine Urobilinogen < 2.0 mg/dL (<2.0) 05/03/20 16:28 Ur Leukocyte Esterase Neg (Negative) 05/03/20 16:28 Urine WBC (Auto) 1.0 /HPF (0.0-6.0) 05/03/20 16:28 Urine RBC (Auto) 3.0 /HPF (0.0-6.0) 05/03/20 16:28 U Epithel Cells (Auto) 5.0 /HPF (0-13.0) 05/03/20 16:28 Urine Bacteria (Auto) 1+ /HPF (Negative) 05/03/20 16:28 Urine Mucus 2+ /HPF 05/03/20 16:28 Coronavirus (PCR) Positive (Negative) A 05/05/20 Unknown [place]/IV: Voiding Method Toilet IV Catheter Type [Left Wrist] Peripheral IV IV Catheter Type [Right Peripheral IV Antecubital] Active Medications - Current Medications Current Medications: Generic Name Dose Route Start Last Admin Trade Name Freq PRN Reason Stop Dose Admin Acetaminophen 650 mg 05/03/20 21:11 05/05/20 15:18 Tylenol PO 650 mg Q4H PRN Administration Pain MILD(1-3)/Fever >100.5/HOFFMAN Heparin Sodium/Sodium Chloride 25,000 unit in 500 mls @ 20 mls/hr 05/03/20 19:00 05/05/20 16:03 Heparin/ 0.45% Nacl-25,000 Unit/500 Ml IV 1,100 units/hr TITRATE [place] 22 mls/hr Administration Protocol 1,000 UNITS/HR Sodium Chloride 1,000 mls @ 75 mls/hr 05/03/20 21:15 05/05/20 09:17 Nacl 0.9% 1000 Ml IV 75 mls/hr DIRECT [place] Administration Ondansetron HCl 4 mg 05/03/20 21:11 05/05/20 09:17 Zofran IV 4 mg Q8H PRN Administration Nausea And Vomiting Sodium Chloride 10 ml 05/03/20 22:00 05/05/20 09:16 Sodium Chloride Flush Syringe 10 Ml IV 10 ml BID [place] Administration Sodium Chloride 10 ml 05/03/20 21:11 Sodium Chloride Flush Syringe 10 Ml IV PRN PRN LINE FLUSH
[2020-05-05] MEDS ORDERED: cefTRIAXone/NS 1 GM/50 ML 1 GM/50 ML BAG IV SCH (20:38)
[2020-05-05] MEDS ORDERED: AZITHROMYCIN 500 MG in SODIUM CHLORIDE 0.9% 250ML 250 ML IV SCH (22:00)
[2020-05-05] MEDS: methylPREDNISolone Sod Succinate 40 MG/1 ML INJ IV SCH (23:03)
[2020-05-05] MEDS ORDERED: HEPARIN 10,000 UNITS/10 ML VIAL IV ONE (23:18)
[2020-05-06] MEDS: HEPARIN/ 0.45% NACL DRIP 25,000 UNIT/500 ML BAG IV SCH ×2 (00:32→21:06)
[2020-05-06] MEDS: methylPREDNISolone Sod Succinate 40 MG/1 ML INJ IV SCH ×3 (05:05→21:05)
--- NOTE | 2020-05-06 07:21 | Progress Note ---
Assessment and Plan - Patient Problems (1) Acute gastroenteritis Current Visit: Yes Status: Acute Plan to address problem: Resolving gastroenteritis. Continue PPI. (2) Coronavirus infection Current Visit: Yes Status: Acute Plan to address problem: Has improved significantly. Patient able to wean down to 2 L of oxygen. Possible anticipated discharge in a.m. (3) NSTEMI (non-ST elevated myocardial infarction) Current Visit: Yes Status: Acute Plan to address problem: Most likely secondary to COVID-19 infection. And inflammation. No further inpatient cardiac work-up required at this time. Can follow-up outpatient. (4) Anemia Current Visit: Yes Status: Chronic Qualifiers: Anemia type: unspecified type Qualified Code(s): D64.9 - Anemia, unspecified Subjective Date of service: 05/06/20 Principal diagnosis: Acute gastroenteritis, chest pain Interval history: 9-year-old female with no significant past medical history and not on any medication comes in for left-sided chest pain since 1 AM. Chest pain is intermittent but persistent mostly. Chest pain is about a 7 on a scale of 1-10. It is retrosternal. No diaphoresis. No shortness of breath. No palpitations. No radiation. Patient is not on any medications at home. Not lifting any weights. No severe exertion. Positive for coronavirus infection. No exacerbating or relieving factors. Patient states she feels much better today. Objective - Constitutional Vitals: Vital Signs - 12hr 05/05/20 05/06/20 22:25 03:38 Temperature 98.2 F 98.7 F Pulse Rate 80 108 H Respiratory 20 20 Rate Blood Pressure 107/61 Blood Pressure 122/65 [Left] O2 Sat by Pulse 96 91 Oximetry General appearance: Present: no acute distress, well-nourished - EENT Eyes: PERRL, EOM intact ENT: hearing intact, clear oral mucosa Ears: bilateral: normal - Neck Neck: supple, normal ROM - Respiratory Respiratory effort: normal Respiratory: bilateral: CTA - Breasts Breasts: normal - Cardiovascular Rhythm: regular Heart Sounds: Present: S1 & S2. Absent: gallop, rub Extremities: pulses intact, No edema, normal color, Full ROM - Gastrointestinal General gastrointestinal: Present: soft, non-tender, non-distended, normal bowel sounds - Genitourinary Female genitourinary: normal - Integumentary Integumentary: clear, warm, dry - Musculoskeletal Musculoskeletal: 1, strength equal bilaterally - Neurologic Neurologic: moves all extremities - Psychiatric Psychiatric: memory intact, appropriate mood/affect, intact judgment & insight - Labs CBC & Chem 7: 05/05/20 05:25 05/05/20 05:25 Labs: Abnormal lab results 05/05/20 05/05/20 05/05/20 Range/Units 05:25 14:41 20:56 WBC 19.3 H (4.5-11.0) K/mm3 RBC 5.30 H (3.65-5.03) M/mm3 Hgb 9.5 L (10.1-14.3) gm/dl MCV 61 L (79-97) fl MCH 18 L (28-32) pg RDW 21.4 H (13.2-15.2) % Lymph % (Auto) 9.6 L (13.4-35.0) % Heparin Anti-Xa Level 0.24 L < 0.10 L (0.3-0.7) U.I./ml Coronavirus (PCR) (Negative) 05/05/20 Range/Units Unknown WBC (4.5-11.0) K/mm3 RBC (3.65-5.03) M/mm3 Hgb (10.1-14.3) gm/dl MCV (79-97) fl MCH (28-32) pg RDW (13.2-15.2) % Lymph % (Auto) (13.4-35.0) % Heparin Anti-Xa Level (0.3-0.7) U.I./ml Coronavirus (PCR) Positive A (Negative) HEART Score - HEART Score EKG: Non-specific Age: 45-65 Risk factors: No known risk factors Troponin: Troponin T 0.318 ng/mL (0.00-0.029) H* D 05/04/20 13:39 Troponin: > 3x normal limit - Critical Actions Critical Actions: 4-6 pts:12-16.6% risk of adverse cardiac event. Should be admitted
--- NOTE | 2020-05-06 10:20 | Progress Note ---
Assessment and Plan Covid Infection Sepsis NSTEMI Likely type II in setting of COVID infection, sepsis. Recommendations: Continue medical therapy including systemic anticoagulation for now. Continue ongoing treatment for underlying infection. Subjective Date of service: 05/06/20 Principal diagnosis: Acute gastroenteritis, chest pain Interval history: Patient is COVID positive Objective Vital Signs Temp Pulse Resp BP BP Pulse Ox 05/06/20 03:38 98.7 F 108 H 20 107/61 91 05/05/20 22:25 98.2 F 80 20 122/65 96 05/05/20 17:09 98.9 F 118 H 22 106/56 90 05/05/20 11:53 127 H - Physical Examination Narrative exam: Patient not personally examined in order to prevent infection transmission in setting of COVID infection - Imaging and Cardiology EKG: report reviewed (Sinus rhythm no acute ST-T wave changes heart rate of 78/min)
[2020-05-06] MEDS: ACETAMINOPHEN 325 MG TAB PO PRN (10:48)
[2020-05-06] MEDS ORDERED: cefTRIAXone/NS 2 GM/100 ML 2 GM/100 ML BAG IV SCH (22:00)
[2020-05-06] MEDS ORDERED: AZITHROMYCIN 250 MG TAB PO SCH (22:00)
[2020-05-07] MEDS: ACETAMINOPHEN 325 MG TAB PO PRN (02:47)
[2020-05-07] MEDS: methylPREDNISolone Sod Succinate 40 MG/1 ML INJ IV SCH (05:10)
[2020-05-07 05:41] VITALS: BP 99/67
[2020-05-07 06:38] LABS: Hematocrit 25.3 % (30.3-42.9); Hemoglobin 7.6 gm/dl (10.1-14.3)
--- NOTE | 2020-05-07 11:24 | Progress Note ---
Assessment and Plan Covid Infection Sepsis NSTEMI Likely type II in setting of COVID infection, sepsis. Recommendations: Continue current medical therapy Continue ongoing treatment for underlying infection. Subjective Date of service: 05/07/20 Principal diagnosis: Acute gastroenteritis, chest pain Interval history: Patient is COVID positive Objective Vital Signs Temp Pulse Resp BP Pulse Ox 05/07/20 05:38 98.3 F 95 H 20 99/67 93 05/07/20 02:47 18 05/06/20 23:02 98.6 F 106 H 20 119/71 94 05/06/20 22:00 18 05/06/20 17:01 99.5 F 107 H 20 118/72 96 05/06/20 11:46 81 - Physical Examination Narrative exam: Patient not personally examined in order to prevent infection transmission in setting of COVID infection General: No Apparent Distress - Labs and Meds CBC 05/07/20 Range/Units 05:08 Hgb 7.6 L (10.1-14.3) gm/dl Hct 25.3 L D (30.3-42.9) % Plt Count 321 (140-440) K/mm3 - Imaging and Cardiology EKG: report reviewed (Sinus rhythm no acute ST-T wave changes heart rate of 78/min)
--- NOTE | 2020-05-07 11:31 | Discharge Summary ---
Providers - Providers Date of Admission: 05/04/20 15:16 Date of discharge: 05/07/20 Attending physician: KY ROSADO 05/03/20 18:44 Consult to Physician [CONS] Stat Comment: Consulting Provider: JEFF RIBEIRO Physician Instructions: Reason For Exam: NSTEMI Primary care physician: T[employer] 1 [employer]OR Hospitalization Condition: Stable Hospital course: 49-year-old female presented originally with chest pain epigastric and left- sided chest pain. Patient also had shortness of breath and work-up showed evidence of pneumonia. Patient was diagnosed with COVID-19 pneumonia. This was thought to be the etiology of her chest pain and non-ST elevation [place]. Patient very concerned about prolonged hospital stay and affordability. This is adding to her stress. Patient wants to be discharged. She is currently stable without O2. Able to get up take a shower and not hypoxemic on room air. Patient non- STEMI more likely than not type II. Given inflammatory reaction from Covid. Will discharge patient home follow-up with cardiology on outpatient. Will discharge patient home on anticoagulation and a statin empirically. Patient will still be quarantine for additional 14 days. Disposition: DC-01 TO HOME OR SELFCARE - Discharge Diagnoses (1) Acute gastroenteritis Status: Acute Comment: Resolved with PPI. (2) Coronavirus infection Status: Acute Comment: Patient with coronavirus infection now much improved. Stable to be discharged home on room air. Patient has fair exercise tolerance without hypoxemia. (3) NSTEMI (non-ST elevated myocardial infarction) Status: Acute Comment: Type II non-STEMI. Follow-up outpatient cardiology Dr. Stephens. Patient given aspirin statin. Told no exercise until follow-up with cardiology. Patient to follow-up after total 14 days. (4) Anemia Status: Chronic Qualifiers: Anemia type: unspecified type Qualified Code(s): D64.9 - Anemia, unspecified Comment: Patient on anticoagulation plus has heavy cycles at this time. Heavy bleeding. Core Measure Documentation - Palliative Care Palliative Care/ Comfort Measures: Not Applicable - Core Measures Any of the following diagnoses?: none Exam - Constitutional Vitals: Temp Pulse Resp BP Pulse Ox 98.3 F 95 H 20 99/67 93 05/07/20 05:38 05/07/20 05:38 05/07/20 05:38 05/07/20 05:38 05/07/20 05:38 General appearance: Present: no acute distress, well-nourished - EENT Eyes: Present: PERRL ENT: hearing intact, clear oral mucosa - Neck Neck: Present: supple, normal ROM - Respiratory Respiratory effort: normal Respiratory: bilateral: CTA - Cardiovascular Heart Sounds: Present: S1 & S2. Absent: rub, click - Extremities Extremities: pulses symmetrical, No edema Peripheral Pulses: within normal limits - Abdominal General gastrointestinal: Present: soft, non-tender, non-distended, normal bowel sounds Female genitourinary: Present: normal - Integumentary Integumentary: Present: clear, warm, dry - Musculoskeletal Musculoskeletal: gait normal, strength equal bilaterally - Psychiatric Psychiatric: appropriate mood/affect, intact judgment & insight - Neurologic Neurologic: CNII-XII intact, moves all extremities Plan Activity: no restrictions Weight Bearing Status: Full Weight Bearing Diet: low salt Health Concerns: Continue respiratory isolation with facemask for total of 14 days to end on the . Patient also to follow-up with cardiology after that time. Follow up with: PRIMARY CARE, [Primary Care Provider] - 3-5 Days
[2020-05-07 15:28] LABS: C-Reactive Protein 2.5 mg/dL (0.00-1.30)
== END 2020-05-07 15:26 | disposition home or self-care (01) | DRG 871 ==
LOC: ED 13:53 → 4A 19:35 → OBSVTOIN 05-04 15:16 → 3A 05-05 17:10
PROVIDERS: ADMIT Internal Medicine; ATTEND Internal Medicine
DX: A41.89 Other specified sepsis (principal); U07.1 COVID-19; I21.A1 Myocardial infarction type 2; J12.89 Other viral pneumonia; K52.9 Noninfective gastroenteritis and colitis, unspecified; D64.9 Anemia, unspecified
CPT/HCPCS: 36415; 71046; 71275; 80053; 80061; 81001; 82728; 83550; 83615; 83690; 84145; 84484; 84703; 85007; 85014; 85018; 85025; 85049; 85379; 85520; 85610; 85730; 86140; 93005; 96374; 96375; G0378; J0456; J0696; J1644; J2405; J2920; J7030; J7050; Q9967; U0003